=== PATIENT | male | born 1990 | race Caucasian/White ===

== ENCOUNTER 2022-01-27 08:56 | Emergency (ER) | payer OTHER, SELFPAY ==
[2022-01-27 09:14] VITALS: BP 123/66; PULSE 89; RESP 16; TEMP 36.8; O2SAT 100
--- NOTE | 2022-01-27 09:26 | ED.SKABFB ---
HPI - Skin/Abscess/Foreign Bdy General Stated complaint: Left Hand Pain Time Seen by Provider: 01/27/22 09:23 Source: patient and RN notes reviewed Mode of arrival: ambulatory Limitations: no limitations History of Present Illness HPI narrative: 31-year-old male presents male presents with concern for sting to his left hand. He reports he was mowing the lawn yesterday and got stung twice, he is not sure what stung him. Reports he woke up today and had significant swelling and itching to the dorsal left hand. He reports he took Benadryl 3 times without relief. He denies swollen lips, swollen tongue, trouble breathing. Denies malaise chills, body ache, fever. MD complaint: insect bite/sting Related Data Allergies Allergy/AdvReac Type Severity Reaction Status Date / Time No Known Allergies Allergy Verified 01/27/22 09:32 Review of Systems Review of Systems: CONSTITUTIONAL: Denies malaise, chills, sweats, or fever. EYES: Denies redness, or discharge. ENT: Denies rhinorrhea, congestion, swollen lips, swollen tongue CARDIOVASCULAR: Denies chest pain, palpitations, or edema. RESPIRATORY: Denies cough or dyspnea. GASTROINTESTINAL: Denies abdominal pain, nausea, vomiting SKIN: Reports itching, swelling to the left hand MUSCULOSKELETAL: Denies joint pain or myalgia. NEUROLOGIC: Denies headache. All systems reviewed & are unremarkable except as noted in HPI and below PMFSH Comments At time of signature, agree with nursing past medical, surgical, social and family history. There is no relevant family history pertinent to the presenting complaint Exam Narrative: GENERAL: Well-appearing, well-nourished, and in no acute distress. HEAD: Normocephalic, atraumatic. EYES: PERRLA, conjunctivae clear, and EOMI. ENT: Mucous membranes moist. NECK: Supple. No lymphadenopathy CHEST: Clear to auscultation. No respiratory distress. HEART: Regular rate and rhythm. SKIN: Warm, dry. Left dorsal hand edematous mildly erythematous without induration, fluctuation, tenderness, noted skin noted NEURO: Alert and oriented x3. PSYCH: Normal mood and affect Course Course Emergency Course: Patient is aware of diagnosis, understands and agrees to treatment plan. Anticipatory guidance given. Patient agrees to follow-up as directed and is aware of reasons to seek care at the emergency department. Portions of this record may have been created with voice recognition software Level of Care: Express Care Visit Vital Signs Vital signs: Vital Signs Temperature 98.2 F 01/27/22 09:14 Pulse Rate 89 01/27/22 09:14 Respiratory Rate 16 01/27/22 09:14 Blood Pressure 123/66 01/27/22 09:14 Pulse Oximetry 100 01/27/22 09:14 Oxygen Delivery Room Air 01/27/22 09:14 Temperature 98.2 F 01/27/22 09:14 Pulse Rate 89 01/27/22 09:14 Respiratory Rate 16 01/27/22 09:14 Blood Pressure 123/66 01/27/22 09:14 Pulse Oximetry 100 01/27/22 09:14 Oxygen Delivery Room Air 01/27/22 09:14 Reviewed. MDM - Skin/Abscess/Foreign Bdy MDM Narrative Medical decision making narrative: Exam findings show no acute concerns or changes; patient is non-toxic appearing and is in no distress. Patient is appropriate for outpatient treatment and follow-up. Differential Diagnosis Differential diagnosis: Likely abscess of skin or subcutaneous tissue, urticaria, cellulitis, insect bites and contact dermatitis Critical Care Time Critical Care Time Critical Care Time: No Discharge Plan Discharge Clinical Impression: Insect sting Patient Disposition: Home, Self-Care Condition: Stable Instructions: Insect Bite or Sting (ED) Additional Instructions: Apply ice to the sting site and swollen area for pain and itch relief. Apply ice for 20 minutes once every hour as needed. Wrap the ice in a towel or keep a cloth between the ice and skin to keep from freezing the skin. Taking an antihistamine such as diphenhydramine (Benadryl) every 6 hours or
== END 2022-01-27 09:37 | disposition home or self-care (01) ==
PROVIDERS: Emergency Provider Nurse Practitioner
DX: T63.481A Toxic effect of venom of other arthropod, accidental (unintentional), initial encounter (principal)
CPT/HCPCS: 99203; G0463